=== PATIENT | male | born 1975 | race African-American/Black ===

== ENCOUNTER 2019-12-29 19:14 | Emergency (ER) | payer SELFPAY ==
--- NOTE | 2020-01-03 14:52 | EKG ---
Test Reason : Blood Pressure : / mmHG Vent. Rate : 112 BPM Atrial Rate : 112 BPM P-R Int : 152 ms QRS Dur : 084 ms QT Int : 340 ms P-R-T Axes : 076 095 034 degrees QTc Int : 464 ms Sinus tachycardia Biatrial enlargement Rightward axis Abnormal ECG Confirmed by TARIK ANDERSON, BACILIO ([id number]), graphics editor KENNY DRAPER ([id number]) on 01/03/2020 2:51:37 PM Referred By: Confirmed By:BACILIO MONTANEZ MD
== END 2019-12-29 20:02 | disposition left against medical advice (07) ==
LOC: ERS 19:14
DX: Z53.21 Procedure and treatment not carried out due to patient leaving prior to being seen by health care provider (principal)
CPT/HCPCS: 93005

== ENCOUNTER 2019-12-30 16:23 | Emergency (ER) | payer OTHER, SELFPAY ==
[2019-12-31 12:48] LABS: SARS-CoV-2 MS2 Positive; SARS-CoV-2 N Gene Negative; SARS-CoV-2 S Gene Negative; SARS-CoV-2 orf1ab Negative
== END 2019-12-30 17:14 | disposition home or self-care (01) ==
LOC: ERS 16:23
DX: R05 Cough (principal); R07.89 Other chest pain; Z20.828 Contact with and (suspected) exposure to other viral communicable diseases; F17.210 Nicotine dependence, cigarettes, uncomplicated
CPT/HCPCS: 87635; 99283; U0003